=== PATIENT | male | born 1955 | race African-American/Black ===

== ENCOUNTER 2016-10-07 20:17 | Emergency (ER) | payer BC ==
[~2016-10-07] VITALS: Ht 177.8 cm; Wt 77.0 kg
[2016-10-07] MEDS ORDERED: TRAMADOL 50MG TABLET PO ONE (21:30)
[2016-10-07] MEDS ORDERED: TETANUS, DIPHTHERIA, PERTUSSIS VAC/PF 0.5ML (>7YR OLD) IM ONE (21:30)
[2016-10-07] MEDS ORDERED: LIDOCAINE HCL 1% 20ML VIAL (Pyxis) INJ INFIL ONE (23:45)
[2016-10-08 00:57] VITALS: BP 132/62
[2016-10-08] MEDS ORDERED: CEPHALEXIN 500MG CAPSULE PO ONE (01:00)
== END 2016-10-08 02:05 | disposition home or self-care (01) ==
LOC: ER 21:48
DX: S61.300A Unspecified open wound of right index finger with damage to nail, initial encounter (principal); E11.9 Type 2 diabetes mellitus without complications; W23.0XXA Caught, crushed, jammed, or pinched between moving objects, initial encounter; Y93.89 Activity, other specified; Y92.89 Other specified places as the place of occurrence of the external cause; Y99.8 Other external cause status
CPT/HCPCS: 29130; 73140; 90471; 90715; 99284; J3490; X7700; Z7610

== ENCOUNTER 2021-12-17 19:54 | Emergency (ER) | payer BC ==
[~2021-12-17] VITALS: Ht 185.4 cm; Wt 69.0 kg
[2021-12-17 20:13] VITALS: BP 150/80
== END 2021-12-17 21:02 | disposition home or self-care (01) ==
LOC: ER 19:54
DX: E11.649 Type 2 diabetes mellitus with hypoglycemia without coma (principal)
CPT/HCPCS: 82962; 99283